=== PATIENT | male | born 1990 | race Caucasian/White ===

== ENCOUNTER 2017-09-04 11:30 | Emergency (ER) | payer OTHER ==
[~2017-09-04] VITALS: Ht 177.8 cm; Wt 68.0 kg
[2017-09-04] MEDS ORDERED: BACTRIM DS TAB1 EACH PO (12:32)
== END 2017-09-04 13:01 | disposition home or self-care (01) ==
LOC: ER 11:30
DX: Z48.00 Encounter for change or removal of nonsurgical wound dressing (principal); F17.210 Nicotine dependence, cigarettes, uncomplicated